=== PATIENT | male | born 1995 | race Caucasian/White ===

== ENCOUNTER 2019-04-26 22:20 | Emergency (ER) | payer BC, OTHER ==
[~2019-04-26] VITALS: Ht 190.5 cm; Wt 131.5 kg
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
--- NOTE | 2019-04-26 23:05 | NUR ---
SEEN AND EXAMINED BY
--- NOTE | 2019-04-26 23:15 | NUR ---
COLLECTION DEVELOPMENT LIBRARIAN AT BEDSIDE FOR XRAY
--- NOTE | 2019-04-26 23:16 | NUR ---
PATIENT DOES NOT WANT ANY PAIN MEDICATION.
[2019-04-27 00:19] VITALS: BP 134/77
--- NOTE | 2019-04-27 00:19 | NUR ---
Patient discharged to home in stable condition. Written and verbal after care instructions given. Patient verbalizes understanding of instruction.
== END 2019-04-27 00:19 | disposition home or self-care (01) ==
LOC: ER 22:21
DX: S20.212A Contusion of left front wall of thorax, initial encounter (principal); F10.10 Alcohol abuse, uncomplicated; Y90.9 Presence of alcohol in blood, level not specified; W18.39XA Other fall on same level, initial encounter; Y93.89 Activity, other specified; Y92.89 Other specified places as the place of occurrence of the external cause; Y99.8 Other external cause status
CPT/HCPCS: 71045-TC